=== PATIENT | male | born 1995 | race Caucasian/White ===

== ENCOUNTER 2019-03-23 17:02 | Emergency (ER) | payer BC ==
--- NOTE | 2019-03-23 17:23 | ED ---
Psychiatric Complaint - HPI Summary HPI Summary: A 23 y/o M who is afebrile presents to ED for MHE due to SI onset six days ago. He denies having SI for the past three days, but is only severely depressed. He says he is eating and sleeping well. Triage notes report recent stress from school and of his cat. Patient sees a therapist at 3 and has been doing well. Rare ETOH. Non-smoker. Marijuana use. - History Of Current Complaint Chief Complaint: EDMentalHealth Time Seen by Provider: 03/23/19 17:15 Hx Obtained From: Patient Onset/Duration: Lasting Days, Still Present Timing: Constant Severity Initially: Moderate Severity Currently: Moderate Character: Depressed Aggravating Factor(s): Recent Stress Associated Signs And Symptoms: Negative: Sleep Disturbance, Appetite Change Has Suicidal: Reports: Thoughts - Allergies/Home Medications Allergies/Adverse Reactions: Allergies Allergy/AdvReac Type Severity Reaction Status Date / Time No Known Allergies Allergy Verified 03/23/19 17:08 Home Medications: Home Medications Adderall 10 mg- 10 mg PO BID 03/23/19 [History Confirmed 03/23/19] PMH/Surg Hx/FS Hx/Imm Hx Previously Healthy: No Opthamlomology History: Denies: Hx Legally Blind EENT History: Denies: Hx Deafness Psychiatric History: Reports: Hx Community Mental Health Tx Infectious Disease History: No Infectious Disease History: Denies: Traveled Outside the [place] in Last 30 Days - Social History Occupation: Student Alcohol Use: Rare Substance Use Type: Reports: Marijuana Hx Tobacco Use: No Review of Systems Negative: Fever Psychological: Other - pos: SI Positive: Depressed All Other Systems Reviewed And Are Negative: Yes Physical Exam - Summary Physical Exam Summary: VITAL SIGNS: Reviewed. GENERAL: Patient is a well-developed and nourished MALE who is lying comfortable in the stretcher. Patient is not in any acute respiratory distress. HEAD AND FACE: No signs of trauma. No ecchymosis, hematomas or skull depressions. No sinus tenderness. EYES: PERRLA, EOMI x 2, No injected conjunctiva, no nystagmus. EARS: Hearing grossly intact. Ear canals and tympanic membranes are within normal limits. MOUTH: Oropharynx within normal limits. NECK: Supple, trachea is midline, no adenopathy, no JVD, no carotid bruit, no c- spine tenderness, neck with full ROM. CHEST: Symmetric, no tenderness at palpation LUNGS: Clear to auscultation bilaterally. No wheezing or crackles. CVS: Regular rate and rhythm, S1 and S2 present, no murmurs or gallops appreciated. ABDOMEN: Soft, non-tender. No signs of distention. No rebound, no guarding, and no masses palpated. Bowel sounds are normal. EXTREMITIES: FROM in all major joints, no edema, no cyanosis or clubbing. NEURO: Alert and oriented x 3. No acute neurological deficits. Speech is normal and follows commands. SKIN: Dry and warm PSYCH: Depressed, quiet, has suicidal thoughts. No homicidal thoughts or plan. No signs of psychosis or pressure speech. No tangential speech. Triage Information Reviewed: Yes Vital Signs On Initial Exam: Initial Vitals Temp Pulse Resp BP Pulse Ox 99.2 F 109 18 131/95 100 03/23/19 17:05 03/23/19 17:05 03/23/19 17:05 03/23/19 17:05 03/23/19 17:05 Vital Signs Reviewed: Yes Diagnostics - Vital Signs Vital Signs Temp Pulse Resp BP Pulse Ox 03/23/19 17:05 99.2 F 109 18 131/95 100 - Laboratory Result Diagrams: 03/23/19 17:39 03/23/19 17:39 Lab Statement: Any lab studies that have been ordered have been reviewed, and results considered in the medical decision making process. Course/Dx - Course Course Of Treatment: Patient is medically clear for MHE at 1730. Patient will be signed out to Dr. Way at shift change, pending MHE. - Differential Dx/Clinical Impression Differential Diagnosis/HQI/PQRI: Positive: Depression Provider Diagnosis: Depression Discharge - Sign-Out/Discharge Documenting (check all that apply): Sign-Out Patient Signing out patient TO: Vel Way - pending MHE Patient Received Moderate/Deep Sedation with Procedure: No - Discharge Plan Condition: Stable Referrals: No Primary Care Phys,NOPCP [Primary Care Provider] - - Billing Disposition and Condition Condition: STABLE - Attestation Statements Document Initiated by Scribe: Yes Documenting Scribe: Kelley Lombardi Provider For Whom Scribe is Documenting (Include Credential): Dr. Leodan Reyna MD Scribe Attestation: I, naeem Ganed for Dr. Leodan Reyna MD on 03/23/19 at 1845. Scribe Documentation Reviewed: Yes Provider Attestation: The documentation as recorded by the [email or web address], Kelley Lombardi accurately reflects the service I personally performed and the decisions made by me, Dr. Leodan Reyna MD Status of Scribe Document: Viewed
[2019-03-23 17:47] LABS: Urine Appearance Turbid; Urine Bilirubin Negative (Negative); Urine Blood Negative (Negative); Urine Color Yellow; Urine Glucose Negative (Negative); Urine Ketones Negative (Negative); Urine Nitrite Negative (Negative); Urine Protein Negative (Negative); Urine Specific Gravity 1.018 (1.010-1.030); Urine Urobilinogen Negative (Negative)
--- OUTSIDE RECORDS SUMMARY | 2019-03-23 17:51 | XMS REPORT | Continuity of Care Document ---
:1995 External Reference #:[id number] Author Name Horace Aguilera M.D. Address [address] [place] [address] Care Team Providers Name Role Phone Lucia Jacobs MD Primary Care Physician Unavailable Payers Date Identification Numbers Payment Provider Subscriber Policy Number: [id number] [employer] Number: [id number] [address] [address] PayID: [id number] [place] [address] Advance Directives Description No Information Available Problems Active Problems Provider Date Non-neoplastic nevus Gurinder Dickey MD Onset: 11/05/2004 Family History Date Family Member(s) Observation Comments Father Unknown Mother Hypertension Mother Hypercholesterolemia Social History Type Date Description Comments Sex Unknown Cigarette Use Denies Cigarette Use ETOH Use Currently consumes alcohol ETOH Use Consumes 1 glass of wine per day Tobacco Use Start: Unknown Patient has never smoked Recreational Drug Use Formerly used Marijuana sporadically Smoking Status Reviewed: 02/05/19 Patient has never smoked Allergies, Adverse Reactions, Alerts Active Allergies Reaction Severity Comments Date Biaxin Stomach Gassy 09/30/1998 Medications Active Medications SIG Qnty Indications Ordering Provider Date [place] 2 sprays each 50ml J31.0 Horace Aguilera, 02/05/2019 0.65% Solution nostil three M.D. times a day and as needed Amphetamine-Dextroamp 1/2 to 1 tab by 60tabs F90.2 Gurinder Dickey MD 05/11 hetamine mouth before 10mg Tablets studying/ work to help addh or code "b" and may repeat in 4-6 hours if needed Magnesium Oxide 1 by mouth each 60tabs Gurinder Dickey MD 02/26/2016 evening to help 400(241.3Mg) mg headaches, vision Tablets black outs, nerves and stomach History Medications Amphetamine-Dextroamphet ER 1 tab by mouth 30caps F90.2 [facility] 2017 - 20mg Caps ER every morning MD Noble 05/11/2018 24HR as needed for code "b" or attention Escitalopram Oxalate 1 tab by mouth 30tabs [facility] 01/13/2018 - 10mg Tablets every day MD Noble 04/12/2018 Amphetamine-Dextroamphet ER take 1 cap each 30caps [facility] 12/30/2017 - 15mg Caps ER 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, [employer] 01/25/2018 24HR code "b" or attention Amphetamine-Dextroamphet ER 1 cap by mouth 30caps F90.2 [facility] 2016 - 10mg Caps ER every morning MD [place]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 Immunizations CPT Code Status Date Vaccine Lot # [id number] Given 09/10/2016 Gardasil 9 Human Papillomavirus Vaccine 75505 Given 04/27/2016 Gardasil 9 Human Papillomavirus Vaccine 76593 Given 02/26/2016 Menactra-Meningococcal Conj Vaccine 24735 Given 02/26/2016 Gardasil 9 Human Papillomavirus Vaccine 29473 Given 08/01/2009 Tetanus, Diphtheria Toxoids/Acellular Pertussis Vaccine 7 Or > 51497 Given 10/30/2003 Influenza Virus Split 3 Yrs And Above For Intramuscular Use 31985 Given 04/24/2003 Poliovirus Vaccine Subcutaneous Or Intramuscular 97611 Given 04/24/2003 MMR Vaccine, Live, For Subcutaneous Use 98633 Given 04/24/2003 DTaP Vaccine Younger Than 7 (daptacel/Infarix) 31855 Given 05/01/2001 Pneumococcal Conjugate Vaccine 7 Valent For Intramuscular Use 23355 Given 10/23/1999 Influenza Virus Split Children 6-35 Mo Of Age Intramuscular Use 83369 Given 04/24/1999 Poliovirus Vaccine Oral 87076 Given 04/24/1999 DTaP Vaccine Younger Than 7 (daptacel/Infarix) 07383 Given 04/24/1999 Hib Hboc Conjugate 4 Dose Schedule 16378 Given 01/23/1999 MMR Vaccine, Live, For Subcutaneous Use 52210 Given 01/23/1999 Varicella (Chicken Pox) Vaccine 80108 Given 10/24/1998 Hepatitis B Vaccine Pediatric/Adolescent 82303 Given 09/12/1998 Influenza Virus Split Children 6-35 Mo Of Age Intramuscular Use 71659 Given 05/28/1998 DTaP Vaccine Younger Than 7 (daptacel/Infarix) 15387 Given 05/28/1998 Hib Hboc Conjugate 4 Dose Schedule 08044 Given 03/28/1998 Poliovirus Vaccine Subcutaneous Or Intramuscular 73068 Given 03/28/1998 DTaP Vaccine Younger Than 7 (daptacel/Infarix) 40036 Given 03/28/1998 Hib Hboc Conjugate 4 Dose Schedule 59262 Given 01/03/1998 Hepatitis B Vaccine Pediatric/Adolescent 10595 Given 01/03/1998 Poliovirus Vaccine Subcutaneous Or Intramuscular 72800 Given 01/03/1998 DTaP Vaccine Younger Than 7 (daptacel/Infarix) 19561 Given 01/03/1998 Hib Hboc Conjugate 4 Dose Schedule 51267 Given 1997 Hepatitis B Vaccine Pediatric/Adolescent Vital Signs Date Vital Result Comment 03/05/2019 8:33am Weight 108.00 lb Weight 48.989 kg BMI (Body Mass Index) 17.4 kg/m2 BP Systolic 108 mmHg BP Diastolic 70 mmHg Heart Rate 80 /min Height 66 inches 5'6" Height in cm's 167.6 cm 02/05/2019 10:55am Weight 106.50 lb Weight 48.308 kg BMI (Body Mass Index) 17.2 kg/m2 BP Systolic 100 mmHg BP Diastolic 70 mmHg Heart Rate 92 /min Pain Level 0 Height 66 inches 5'6" Height in cm's 167.6 cm O2 % BldC Oximetry 98 % 05/11/2018 4:36pm Weight 107.19 lb Fu Medication Weight 48.620 kg BMI (Body Mass Index) 17.6 kg/m2 BP Systolic 101 mmHg BP Diastolic 68 mmHg Heart Rate 98 /min Body Temperature 98.2 F Height 65.5 inches 5'5.50" Height in cm's 166.4 cm O2 % BldC Oximetry 98 % 04/21/2018 10:21am Weight 108.19 lb Swollen Lymph Nodes In The Back Of Neck Weight 49.074 kg BMI (Body Mass Index) 17.7 kg/m2 BP Systolic 113 mmHg BP Diastolic 72 mmHg Heart Rate 105 /min Body Temperature 98.1 F Height 65.5 inches 5'5.50" Height in cm's 166.4 cm O2 % BldC Oximetry 100 % 04/12/2018 3:19pm Weight 109.38 lb Fu Depression Weight 49.612 kg BMI (Body Mass Index) 17.9 kg/m2 BP Systolic 101 mmHg BP Diastolic 63 mmHg Heart Rate 80 /min Body Temperature 98.4 F Height 65.5 inches 5'5.50" Height in cm's 166.4 cm O2 % BldC Oximetry 98 % 02/07/2018 9:47am Weight 108.00 lb Medication F/Up Weight 48.989 kg BMI (Body Mass Index) 17.7 kg/m2 BP Systolic 108 mmHg BP Diastolic 66 mmHg Heart Rate 83 /min Body Temperature 98.2 F Height 65.5 inches 5'5.50" Height in cm's 166.4 cm O2 % BldC Oximetry 98 % 12/30/2017 3:43pm Weight 106.38 lb F/U Meds Weight 48.252 kg BMI (Body Mass Index) 17.4 kg/m2 BP Systolic 105 mmHg BP Diastolic 62 mmHg Heart Rate 79 /min Body Temperature 97.0 F Height 65.50 inches 5'5.50" Height in cm's 166.4 cm O2 % BldC Oximetry 99 % 12/05/2017 2:53pm Weight 104.56 lb Med F/Up insurance just 30d BMI (Body Mass Index) 17.1 kg/m2 BP Systolic 114 mmHg BP Diastolic 74 mmHg Heart Rate 91 /min Body Temperature 97.3 F Height 65.5 inches 5'5.50" Height in cm's 166.4 cm 11/07/2017 3:46pm Weight 107.00 lb F/U Medication Weight 48.535 kg BMI (Body Mass Index) 17.5 kg/m2 BP Systolic 117 mmHg BP Diastolic 75 mmHg Heart Rate 79 /min Body Temperature 98.5 F Height 65.50 inches 5'5.50" Height in cm's 166.4 cm O2 % BldC Oximetry 98 % 10/12/2017 3:04pm Weight 105.62 lb F/U Add Weight Percentile <3rd Weight 47.912 kg BMI (Body Mass Index) 17.3 kg/m2 Body Mass Index Percentile 3 % BP Systolic 115 mmHg BP Diastolic 74 mmHg Heart Rate 85 /min Body Temperature 97.6 F Height 65.50 inches 5'5.50" Height in cm's 166.4 cm Height Percentile 7 % O2 % BldC Oximetry 99 % 09/23/2017 3:14pm Weight 106.00 lb Weight 48.081 kg BMI (Body Mass Index) 17.4 kg/m2 BP Systolic 117 mmHg BP Diastolic 69 mmHg Heart Rate 72 /min Body Temperature 98.3 F Height 65.50 inches Height in cm's 166.4 cm Height Percentile 7 % O2 % BldC Oximetry 99 % 02/26/2016 3:52pm Weight 111.12 lb Weight 50.403 kg BMI (Body Mass Index) 18.2 kg/m2 BP Systolic 114 mmHg BP Diastolic 74 mmHg Heart Rate 64 /min Body Temperature 97.7 F Height 65.50 inches Height in cm's 166.4 cm Height Percentile 8 % O2 % BldC Oximetry 99 % 09/06/2007 9:40am Weight 48.69 lb Weight 22.085 kg Body Temperature 98.1 F 04/14/2007 4:19pm Weight 46.62 lb Weight 21.146 kg BMI (Body Mass Index) 13.7 kg/m2 BP Systolic 87 mmHg BP Diastolic 60 mmHg Heart Rate 106 /min Body Temperature 97.2 F Height 49 inches Height in cm's 124.5 cm Height Percentile 5 % O2 % BldC Oximetry 0 % 03/15/2007 2:24pm Weight 47.50 lb Weight 21.546 kg Body Temperature 98.6 F 11/05/2004 3:49pm Weight 38.50 lb Weight 17.463 kg BMI (Body Mass Index) 13.7 kg/m2 BP Systolic 92 mmHg BP Diastolic 64 mmHg Heart Rate 105 /min Body Temperature 97.8 F Height 44.50 inches Height in cm's 113.0 cm Height Percentile 5 % O2 % BldC Oximetry 99 % 10/30/2003 4:07pm Weight 34.31 lb Weight 15.563 kg BMI (Body Mass Index) 13.5 kg/m2 BP Systolic 108 mmHg BP Diastolic 80 mmHg Heart Rate 126 /min Body Temperature 98.4 F Height 42.25 inches Height in cm's 107.3 cm Height Percentile 5 % 10/01/2002 3:16pm Weight 29.12 lb Weight 13.209 kg BMI (Body Mass Index) 13.1 kg/m2 BP Systolic 100 mmHg BP Diastolic 63 mmHg Heart Rate 113 /min Body Temperature 97.8 F Height 39.50 inches Height in cm's 100.3 cm Height Percentile 5 % 05/04/2001 10:24am Weight 25.38 lb Weight 11.512 kg Body Temperature 99.6 F 05/01/2001 1:33pm Weight 27.06 lb Weight 12.274 kg BMI (Body Mass Index) 13.9 kg/m2 BP Systolic 72 mmHg BP Diastolic 40 mmHg Heart Rate 120 /min Body Temperature 98.6 F Height 37.25 inches Height in cm's 94.6 cm Height Percentile 31 % 03/23/2000 11:47am Weight 22.50 lb Weight 10.206 kg Body Temperature 98.7 F 10/23/1999 11:03am Weight 21.06 lb Weight 9.553 kg BMI (Body Mass Index) 13.6 kg/m2 Body Temperature 98.8 F Height 33 inches Height in cm's 83.8 cm Height Percentile 13 % Head Circumference 19.50 inches Head Percentile 56 % 07/22/1999 11:09am Body Temperature 98.9 F 07/21/1999 12:49pm Weight 20.31 lb Weight 9.212 kg Body Temperature 98.9 F 06/20/1999 9:36am Weight 20.12 lb Weight 9.126 kg Body Temperature 98.3 F 04/24/1999 10:07am Weight 19.88 lb Weight 9.017 kg Body Temperature 98.2 F Height 31.5 inches Height in cm's 80.0 cm Head Circumference 18.5 inches Head Percentile 16 % 03/31/1999 3:21pm Weight 19.94 lb Weight 9.045 kg Body Temperature 98.6 F 02/13/1999 12:36pm Weight 18.88 lb Weight 8.564 kg Body Temperature 97.4 F 01/23/1999 11:08am Weight 18.75 lb Weight 8.505 kg Body Temperature 98.0 F Height 29 inches Height in cm's 73.7 cm Head Circumference 18.5 inches Head Percentile 30 % 10/24/1998 1:30pm Weight 17.12 lb Weight 7.766 kg Body Temperature 98.0 F Height 27.5 inches Height in cm's 69.8 cm Head Circumference 18 inches Head Percentile 22 % 10/21/1998 8:38am Weight 17.06 lb Weight 7.738 kg Body Temperature 98.3 F Height 27.5 inches Height in cm's 69.8 cm 09/30/1998 1:27pm Weight 17.00 lb Weight 7.711 kg Body Temperature 96.8 F 09/12/1998 2:22pm Weight 17.06 lb Weight 7.738 kg Body Temperature 98.8 F 08/15/1998 1:29pm Weight 16.56 lb Weight 7.511 kg Body Temperature 98.2 F Height 25.50 inches Height in cm's 64.8 cm Head Circumference 17.75 inches Head Percentile 30 % 06/14/1998 10:56am Weight 15.44 lb Weight 7.003 kg Body Temperature 98.4 F 06/04/1998 3:19pm Weight 15.44 lb Weight 7.003 kg Body Temperature 100.6 F 05/28/1998 9:19am Weight 15.00 lb Weight 6.804 kg Body Temperature 97.9 F Height 25.5 inches Height in cm's 64.8 cm Head Circumference 17 inches 03/28/1998 10:47am Weight 14.12 lb Weight 6.405 kg Body Temperature 97.9 F Height 24 inches Height in cm's 61.0 cm Head Circumference 16.25 inches 03/20/1998 11:32am Weight 13.56 lb Weight 6.151 kg Heart Rate 133 /min Body Temperature 98.0 F O2 % BldC Oximetry 94 % 03/17/1998 10:47am Weight 13.38 lb Weight 6.069 kg Body Temperature 97.6 F 03/14/1998 9:48am Weight 13.25 lb Weight 6.010 kg Body Temperature 97.9 F 01/03/1998 12:00am Weight 11.38 lb Weight 5.162 kg Body Temperature 98.2 F 1997 12:00am Weight 9.50 lb Weight 4.309 kg Body Temperature 98.2 F 1997 12:00am Weight 7.62 lb Weight 3.456 kg Body Temperature 97.6 F Height 19.50 inches Height in cm's 49.5 cm Head Circumference 14.255 inches 1997 12:00am Weight 6.69 lb Weight 3.035 kg Body Temperature 98.4 F 1997 12:00am Weight 6.56 lb Weight 2.976 kg Body Temperature 98.4 F 1997 12:00am Weight 6.25 lb Weight 2.835 kg Body Temperature 98.8 F Results Test Date Facility Test Result H/L Range Note Culture Throat 04/21/2018 [facility] Isolate 1 Predominant Haem 1 [facility] [phone] <SEE NOTE> Culture (beta lactamase <SEE NOTE> 2 Laboratory test 02/26/2016 N2N/CCD Import Specific 1.015 g/mL 1.005 - finding [place] 1.025 pH 6.5 # 5 - 8 Laboratory test finding 04/14/2007 N2N/CCD Import Urine Leukocytes 25 1 Urine PH 5 1 Urine SG 1.020 1 Urine Uro 1 Laboratory test finding 11/05/2004 N2N/CCD Import Urine PH 6 1 Urine SG 1.020 1 Laboratory test finding 10/30/2003 N2N/CCD Import Urine Leukocytes 75 1 Urine PH 6.5 1 Urine SG 1.010 1 Laboratory test finding 10/01/2002 N2N/CCD Import Urine SG 1.020 1 pH 6 1 urinalysis 05/01/2001 N2N/CCD Import Blood 0 1 glucose urine 0 1 ketones 0 1 leukocytes 0 1 pH 5 1 protein 0 1 Laboratory test finding 10/23/1999 N2N/CCD Import Hemoglobin 11.8 1 Lymphocyte 5.7 1 MCV 84.2 1 MPV 6.3 1 Mean Corposcular Hemaglobin 28.4 1 Monocyte 0.4 1 RBC Count 4.15 1 RDW 13.8 1 granulocytes 2.0 1 hematocrit 35.0 1 lead level 2.2 1 mean corpuscular Hgb Concentr 33.7 1 platelets 417 1 white blood cell count 8.2 1 Laboratory test 08/15/1998 N2N/CCD Import Hemoglobin 11.5 gm% see age specific finding Lymphocyte 15.0 1 High MCV 80.0 1 MPV 6.8 1 Low Mean Corposcular Hemaglobin 26.2 1 Low Monocyte 0.9 1 RBC Count 4.41 1 RDW 14.2 1 granulocytes 3.0 x10^9/L age specific hematocrit 35.2 % see age specific lead level 3.0 1 mean corpuscular Hgb Concentr 32.8 1 platelets 360 x10^9/L age specific white blood cell count 19.0 1 High Laboratory test finding 1997 N2N/CCD Import 15.2 1 Hemoglobin 15.5 gm% see age specific Lymphocyte 4.7 1 MCV 106.4 1 MPV 7.2 1 Mean Corposcular Hemaglobin 34.3 1 Monocyte 1.5 1 RBC Count 4.52 1 RDW 15.7 1 granulocytes 2.3 x10^9/L age specific hematocrit 48.1 % see age specific mean corpuscular Hgb Concentr 32.3 1 platelets 410 x10^9/L age specific white blood cell count 8.5 1 1 Predominant Haemophilus influenzae 2 (beta lactamase negative) Procedures Date Code Description Status 03/05/2019 39334 Tympanometry (Impedance Testing) Completed 02/05/2019 45007 Tympanometry (Impedance Testing) Completed 10/01/2002 76054 Visual Screening Test Of Visual Acuity, Quantitative, Completed Bilateral 10/01/2002 12598 Pure Tone Audiometry (Threshold) Air Only Completed 05/01/2001 39793 Visual Screening Test Of Visual Acuity, Quantitative, Completed Bilateral 05/01/2001 69253 Pure Tone Audiometry (Threshold) Air Only Completed 10/23/1999 00809 Therapeutic,Prophylactic, Diagnostic Injection Completed 07/21/1999 42180 Unlisted Procedure, Ophthalmological Completed 10/24/1998 61332 Therapeutic,Prophylactic, Diagnostic Injection Completed 03/20/1998 32898 Pulse Oximetry Single Determination Completed Encounters Type Date Location Provider Dx Diagnosis Office Visit 03/05/2019 Disha Garcia H93.13 Tinnitus, bilateral 8:30a Services [facility] Attention- deficit 4:15p Specialists hyperactivity disorder, combined type R59.0 Localized enlarged lymph nodes Office Visit 04/21/2018 [facility]0 Localized Specialists enlarged lymph nodes F90.2 Attention-deficit hyperactivity disorder, combined type L50.0 Allergic urticaria [facility] Attention-deficit 3:15p Specialists MD [place] hyperactivity disorder, combined type G47.9 Sleep disorder, unspecified Office Visit 02/07/2018 [facility] F33.1 Major depressive Specialists disorder, recurrent, moderate R41.840 Attention and concentration deficit Office Visit 12/30/2017 [facility] F90.2 Attention-deficit 3:30p Specialists MATT Doyle hyperactivity disorder, combined type Office Visit 12/05/2017 [place] [address].2 Attention-deficit 2:45p Specialists MD [place] hyperactivity disorder, combined type Z71.3 Dietary counseling and surveillance Office Visit 11/07/2017 [place] [address].2 Attention-deficit 3:15p Specialists MD [place] hyperactivity disorder, combined type E55.9 Vitamin D deficiency, unspecified Z71.3 Dietary counseling and surveillance Office Visit 10/12/2017 [place] [address].2 Attention-deficit 3:00p Cade Dickey MD hyperactivity disorder, combined type Z71.89 Other specified counseling Office Visit 09/23/2017 3:15p [facility] [place], E55.9 Vitamin D Specialists deficiency, unspecified R41.840 Attention and concentration deficit G43.009 Migraine w/o aura, not intractable, w/o status migrainosus Plan of Treatment No Information Available
--- OUTSIDE RECORDS SUMMARY | 2019-03-23 17:51 | XMS REPORT | Continuity of Care Document ---
:1995 External Reference #:[id number] Author Name Horace Aguilera M.D. Address [address] [facility] [address] [place] [address] Care Team Providers Name Role Phone Lucia Jacobs MD Primary Care Physician Unavailable Payers Date Identification Numbers Payment Provider Subscriber Policy Number: [id number] [employer] Number: [id number] [address] [address] PayID: [id number] [place] [address] Advance Directives Description No Information Available Problems [...] Medications SIG Qnty Indications Ordering Provider Date [place] 2 sprays each 50ml J31.0 Horace Aguilera, [...] ER 1 tab by mouth 30caps F90.2 [facility] 2017 - 20mg Caps ER every morning MD Noble 05/11/2018 24HR as needed for code "b" or attention Escitalopram Oxalate 1 tab by mouth 30tabs [facility] 01/13/2018 - 10mg Tablets every day MD Noble 04/12/2018 Amphetamine-Dextroamphet ER take 1 cap each 30caps [facility] 12/30/2017 - 15mg Caps ER 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, 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 01/25/2018 24HR code "b" or attention Amphetamine-Dextroamphet ER 1 cap by mouth 30caps F90.2 [facility] 2016 - 10mg Caps ER every morning MD Noble 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 Immunizations CPT Code Status Date Vaccine Lot # 48219 Given 09/10/2016 Gardasil 9 Human Papillomavirus Vaccine 32560 Given 04/27/2016 Gardasil 9 Human Papillomavirus Vaccine 95403 Given 02/26/2016 Menactra-Meningococcal Conj Vaccine 55299 Given 02/26/2016 Gardasil 9 Human Papillomavirus Vaccine 80115 Given 08/01/2009 Tetanus, Diphtheria Toxoids/Acellular Pertussis Vaccine 7 Or > 89623 Given 10/30/2003 Influenza Virus Split 3 Yrs And Above For Intramuscular Use 80353 Given 04/24/2003 Poliovirus Vaccine Subcutaneous Or Intramuscular 99212 Given 04/24/2003 MMR Vaccine, Live, For Subcutaneous Use 80304 Given 04/24/2003 DTaP Vaccine Younger Than 7 (daptacel/Infarix) 06716 Given 05/01/2001 Pneumococcal Conjugate Vaccine 7 Valent For Intramuscular Use 37639 Given 10/23/1999 Influenza Virus Split Children 6-35 Mo Of Age Intramuscular Use 50918 Given 04/24/1999 Poliovirus Vaccine Oral 15436 Given 04/24/1999 DTaP Vaccine Younger Than 7 (daptacel/Infarix) 28159 Given 04/24/1999 Hib Hboc Conjugate 4 Dose Schedule 38063 Given 01/23/1999 MMR Vaccine, Live, For Subcutaneous Use 71251 Given 01/23/1999 Varicella (Chicken Pox) Vaccine 87837 Given 10/24/1998 Hepatitis B Vaccine Pediatric/Adolescent 45750 Given 09/12/1998 Influenza Virus Split Children 6-35 Mo Of Age Intramuscular Use 31410 Given 05/28/1998 DTaP Vaccine Younger Than 7 (daptacel/Infarix) 26135 Given 05/28/1998 Hib Hboc Conjugate 4 Dose Schedule 74886 Given 03/28/1998 Poliovirus Vaccine Subcutaneous Or Intramuscular 54611 Given 03/28/1998 DTaP Vaccine Younger Than 7 (daptacel/Infarix) 08124 Given 03/28/1998 Hib Hboc Conjugate 4 Dose Schedule 66370 Given 01/03/1998 Hepatitis B Vaccine Pediatric/Adolescent 30915 Given 01/03/1998 Poliovirus Vaccine Subcutaneous Or Intramuscular 02332 Given 01/03/1998 DTaP Vaccine Younger Than 7 (daptacel/Infarix) 08253 Given 01/03/1998 Hib Hboc Conjugate 4 Dose Schedule 70810 Given 1997 Hepatitis B Vaccine Pediatric/Adolescent Vital Signs Date Vital Result Comment 03/05/2019 8:33am Weight 108.00 lb Weight 48.989 kg BMI (Body Mass Index) 17.4 kg/m2 Height 66 inches 5'6" Height in cm's [...] Lab Isolate 1 Predominant Haem 1 Comprehensive [phone] <SEE NOTE> Culture (beta lactamase <SEE NOTE> 2 Laboratory test 02/26/2016 N2N/CCD Import Specific 1.015 g/mL 1.005 - finding [place] 1.025 pH 6.5 # 5 - 8 [...] lactamase negative) Procedures Date Code Description Status 02/05/2019 44609 Tympanometry (Impedance Testing) Completed 10/01/2002 88947 Visual Screening Test Of Visual Acuity, Quantitative, Completed Bilateral 10/01/2002 22140 Pure Tone Audiometry (Threshold) Air Only Completed 05/01/2001 66552 Visual Screening Test Of Visual Acuity, Quantitative, Completed Bilateral 05/01/2001 73161 Pure Tone Audiometry (Threshold) Air Only Completed 10/23/1999 87903 Therapeutic,Prophylactic, Diagnostic Injection Completed 07/21/1999 94545 Unlisted Procedure, Ophthalmological Completed 10/24/1998 80615 Therapeutic,Prophylactic, Diagnostic Injection Completed 03/20/1998 30452 Pulse Oximetry Single Determination Completed Encounters Type Date Location Provider Dx Diagnosis [facility] F90.2 Attention- deficit 4:15p Specialists hyperactivity disorder, combined type R59.0 Localized enlarged lymph nodes Office Visit 04/21/2018 10:15a [facility] Noble, R59.0 Localized Specialists enlarged lymph nodes F90.2 Attention-deficit hyperactivity disorder, combined type L50.0 Allergic urticaria Office Visit 04/12/2018 [facility]90.2 Attention-deficit 3:15p Specialists MD Noble hyperactivity disorder, combined type G47.9 Sleep disorder, unspecified Office Visit 02/07/2018 9:15a [facility] Noble, F33.1 Major depressive Specialists disorder, recurrent, moderate R41.840 Attention and concentration deficit Office Visit 12/30/2017 [facility] F90.2 Attention-deficit 3:30p Specialists MATT Doyle hyperactivity disorder, combined type Office Visit 12/05/2017 [facility]90.2 Attention-deficit 2:45p Specialists MD Noble hyperactivity disorder, combined type Z71.3 Dietary counseling and surveillance Office Visit 11/07/2017 [facility] F90.2 Attention-deficit 3:15p Specialists MD Noble hyperactivity disorder, combined type E55.9 Vitamin D deficiency, unspecified Z71.3 Dietary counseling and surveillance [facility] Attention-deficit 3:00p Cade Dickey MD hyperactivity disorder, combined type Z71.89 Other specified counseling Office Visit 09[facility]23[facility]2017 [facility] [place], E55.9 Vitamin D Specialists deficiency, unspecified R41.840 Attention and concentration deficit G43.009 Migraine w/o aura, not intractable, w/o status migrainosus Plan of Treatment 02/05/2019 - Horace Aguilera M.D.H93.13 Tinnitus, bilateralNew Orders: Comprehensive Audiology Evaluation, Ordered: 02/05/19Follow up:Follow-up after gyavlgibgX16.0 Chronic rhinitisNew Medication:B[place]vue 0.65 % - 2 sprays each nostil three times a day and as needed
--- OUTSIDE RECORDS SUMMARY | 2019-03-23 17:51 | XMS REPORT | Continuity of Care Document ---
:1995 External Reference #:[id number] Author Name Horace Aguilera M.D. Address [address] [facility] [address] [place] [address] Care Team Providers Name Role Phone Lucia Jacobs MD Primary Care Physician Unavailable Payers Date Identification Numbers Payment Provider Subscriber Policy Number: [id number] [employer] Number: [id number] [address] [address] PayID: [id number] [place] [address] Advance Directives Description No Information Available Problems [...] Medications SIG Qnty Indications Ordering Provider Date [place] 2 sprays each 50ml J31.0 Horace Aguilera, [...] ER 1 tab by mouth 30caps F90.2 [facility] 2017 - 20mg Caps ER every morning MD Noble 05/11/2018 24HR as needed for code "b" or attention Escitalopram Oxalate 1 tab by mouth 30tabs [facility] 01/13/2018 - 10mg Tablets every day MD Noble 04/12/2018 Amphetamine-Dextroamphet ER take 1 cap each 30caps [facility] 12/30/2017 - 15mg Caps ER 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, 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 01/25/2018 24HR code "b" or attention Amphetamine-Dextroamphet ER 1 cap by mouth 30caps F90.2 [facility] 2016 - 10mg Caps ER every morning MD 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 Immunizations CPT Code Status Date Vaccine Lot # [id number] Given 09/10/2016 Gardasil 9 Human Papillomavirus Vaccine 56811 Given 04/27/2016 Gardasil 9 Human Papillomavirus Vaccine 57551 Given 02/26/2016 Menactra-Meningococcal Conj Vaccine 68707 Given 02/26/2016 Gardasil 9 Human Papillomavirus Vaccine 66069 Given 08/01/2009 Tetanus, Diphtheria Toxoids/Acellular Pertussis Vaccine 7 Or > 00402 Given 10/30/2003 Influenza Virus Split 3 Yrs And Above For Intramuscular Use 23362 Given 04/24/2003 Poliovirus Vaccine Subcutaneous Or Intramuscular 66523 Given 04/24/2003 MMR Vaccine, Live, For Subcutaneous Use 69051 Given 04/24/2003 DTaP Vaccine Younger Than 7 (daptacel/Infarix) 74543 Given 05/01/2001 Pneumococcal Conjugate Vaccine 7 Valent For Intramuscular Use 63131 Given 10/23/1999 Influenza Virus Split Children 6-35 Mo Of Age Intramuscular Use 59965 Given 04/24/1999 Poliovirus Vaccine Oral 45659 Given 04/24/1999 DTaP Vaccine Younger Than 7 (daptacel/Infarix) 01409 Given 04/24/1999 Hib Hboc Conjugate 4 Dose Schedule 07056 Given 01/23/1999 MMR Vaccine, Live, For Subcutaneous Use 50607 Given 01/23/1999 Varicella (Chicken Pox) Vaccine 91068 Given 10/24/1998 Hepatitis B Vaccine Pediatric/Adolescent 73514 Given 09/12/1998 Influenza Virus Split Children 6-35 Mo Of Age Intramuscular Use 70153 Given 05/28/1998 DTaP Vaccine Younger Than 7 (daptacel/Infarix) 05007 Given 05/28/1998 Hib Hboc Conjugate 4 Dose Schedule 08222 Given 03/28/1998 Poliovirus Vaccine Subcutaneous Or Intramuscular 61854 Given 03/28/1998 DTaP Vaccine Younger Than 7 (daptacel/Infarix) 42864 Given 03/28/1998 Hib Hboc Conjugate 4 Dose Schedule 12169 Given 01/03/1998 Hepatitis B Vaccine Pediatric/Adolescent 81283 Given 01/03/1998 Poliovirus Vaccine Subcutaneous Or Intramuscular 31479 Given 01/03/1998 DTaP Vaccine Younger Than 7 (daptacel/Infarix) 90716 Given 01/03/1998 Hib Hboc Conjugate 4 Dose Schedule 87254 Given 1997 Hepatitis B Vaccine Pediatric/Adolescent Vital [...] Lab Isolate 1 Predominant Haem 1 Comprehensive [phone] <SEE NOTE> Culture (beta lactamase <SEE NOTE> 2 Laboratory test 02/26/2016 N2N/CCD Import Specific 1.015 g/mL 1.005 - finding [place] 1.025 pH 6.5 # 5 - 8 [...] negative) Procedures Date Code Description Status 03/05/2019 95788 Tympanometry (Impedance Testing) Completed 02/05/2019 91179 Tympanometry (Impedance Testing) Completed 10/01/2002 56241 Visual Screening Test Of Visual Acuity, Quantitative, Completed Bilateral 10/01/2002 09503 Pure Tone Audiometry (Threshold) Air Only Completed 05/01/2001 22158 Visual Screening Test Of Visual Acuity, Quantitative, Completed Bilateral 05/01/2001 98879 Pure Tone Audiometry (Threshold) Air Only Completed 10/23/1999 85926 Therapeutic,Prophylactic, Diagnostic Injection Completed 07/21/1999 01738 Unlisted Procedure, Ophthalmological Completed 10/24/1998 93616 Therapeutic,Prophylactic, Diagnostic Injection Completed 03/20/1998 08295 Pulse Oximetry Single Determination Completed Encounters Type Date Location Provider Dx Diagnosis Office Visit 03/05/2019 Disha Garcia H93.13 Tinnitus, bilateral 8:30a Services Alix Aguilera Office Visit 05/11/2018 [facility] Gurinder Dickey F90.2 Attention- deficit 4:15p Specialists hyperactivity disorder, combined type R59.0 Localized enlarged lymph nodes Office Visit 04/21/2018 10:15a [facility] Gurinder Dickey R59.0 Localized Specialists enlarged lymph nodes F90.2 Attention-deficit hyperactivity disorder, combined type L50.0 Allergic urticaria [facility] Attention-deficit 3:15p Specialists MD Noble hyperactivity disorder, combined type G47.9 Sleep disorder, unspecified Office Visit 02/07/2018 9:15a [facility] Gurinder Dickey F33.1 Major depressive Specialists disorder, recurrent, moderate R41.840 Attention and concentration deficit Office Visit 12/30/2017 [facility] Aretha F90.2 Attention-deficit 3:30p Specialists MATT Doyle hyperactivity disorder, combined type Office Visit 12/05/2017 [facility]90.2 Attention-deficit 2:45p Cade Dickey MD hyperactivity disorder, combined type Z71.3 Dietary counseling and surveillance Office Visit 11/07/2017 [place] [address]67.2 Attention-deficit 3:15p Cade Dickey MD hyperactivity disorder, combined type E55.9 Vitamin D deficiency, unspecified Z71.3 Dietary counseling and surveillance Office Visit 10/12/2017 [place] [address]67.2 Attention-deficit 3:00p Cade Dickey MD hyperactivity disorder, combined type Z71.89 Other specified counseling Office Visit 09/23/2017 3:15p [facility] Noble, E55.9 Vitamin D Specialists deficiency, unspecified R41.840 Attention and concentration deficit G43.009 Migraine w/o aura, not intractable, w/o status migrainosus Plan of Treatment No Information Available
[2019-03-23 17:53] LABS: ABS Eosinophils 0.1 10^3/ul (0-0.6); ABS Monocytes 0.7 10^3/ul (0-0.8); Eosinophil % 1.3 %; Hematocrit 43 % (42-52); Lymphocyte % 33.7 %; Mean Corpuscular HGB Conc 35 g/dL (31-36); Mean Corpuscular Hemoglobin 30 pg (27-31); Mean Corpuscular Volume 87 fL (80-94); Mean Platelet Volume 7.7 fL (7.4-10.4); Nucleated Red Blood Cells % 0.1; Platelet Count 348 10^3/uL (150-450); Red Blood Count 5.01 10^6 /uL (4.18-5.48); Red Cell Distribution Width 13 % (10.5-15); White Blood Count 8.8 10^3/uL (3.5-10.8)
[2019-03-23 18:09] LABS: ALT 14 U/L (7-52); AST 17 U/L (13-39); Albumin/Globulin Ratio 1.7 (1-3); Alkaline Phosphatase 66 U/L (34-104); Anion Gap 7 mmol/L (2-11); BUN/Creatinine Ratio 15.2 (8-20); Blood Urea Nitrogen 15 mg/dL (6-24); CO2 Carbon Dioxide 27 mmol/L (22-32); Calcium 9.8 mg/dL (8.6-10.3); Chloride 107 mmol/L (101-111); EGFR African American 115.5 (>60); EGFR Non-African American 95.4 (>60); Glucose 98 mg/dL (70-100); Potassium 3.9 mmol/L (3.5-5.0); Sodium 141 mmol/L (135-145)
[2019-03-23 18:11] LABS: Urine Benzodiazepine Screen None Detected (None Detect); Urine Opiates Screen None Detected (None Detect)
[2019-03-23 18:17] LABS: Alcohol < 10 mg/dL (<10); Salicylate < 2.50 mg/dL (<30)
[2019-03-23 18:31] LABS: TSH (Thyroid Stimulating Horm) 0.87 mcIU/mL (0.34-5.60)
[2019-03-23 18:38] LABS: Acetaminophen < 15 mcg/mL
--- NOTE | 2019-03-23 19:08 | ED ---
Progress - Progress Note Progress Note: Patient was signed out from Dr. Reyna at end of shift, pending MHE. At 2112, per Dr. Hinds, patient is cleared for discharge, with a dx of anxiety and depression. Patient is agreeable with this plan. Course/Dx - Course Course Of Treatment: Patient is medically clear for MHE at 1730. Patient was signed out from Dr. Reyna at end of shift, pending MHE. At 2112, per Dr. Hinds , patient is cleared for discharge, with a dx of anxiety and depression. Patient is agreeable with this plan. - Diagnoses Provider Diagnoses: Depression, Anxiety - Provider Notifications Discussed Care Of Patient With: Kd Hinds - Psychiatrist Time Discussed With Above Provider: 21:13 Discharge - Sign-Out/Discharge Documenting (check all that apply): Patient Departure, Receiving Sign-Out Receiving patient FROM: Leodan Reyna Patient Received Moderate/Deep Sedation with Procedure: No - Discharge Plan Condition: Stable Disposition: HOME Patient Education Materials: Depression (ED) Referrals: No Primary Care Phys,NOPCP [Primary Care Provider] - Additional Instructions: Per completion of a mental health evaluation, you are cleared for release and do not require inpatient psychiatric hospitalization at this time. Please go to nearest emergency room or call 911 if safety concerns arise or condition worsens. Important Phone Numbers: [facility] ph:[phone] Su[facility] Prevention [facility] Crisis Services ph:[phone] National Suicide Prevention Lifeline ph:[phone]- [phone] (5956) [facility] ph:[phone] Alcoholics Anonymous ph: [facility] ph:[phone] [facility] Police ph:[phone] Follow up with [facility] on Tuesday to schedule an intake and commence assessment. . - Billing Disposition and Condition Condition: STABLE Disposition: Home - Attestation Statements Document Initiated by Scribe: Yes Documenting Scribe: Edwin Chirinos Provider For Whom Scribe is Documenting (Include Credential): Vel Way MD Scribe Attestation: Edwin Alfredo, scribed for Vel Way MD on 03/24/19 at 0607. Scribe Documentation Reviewed: Yes Provider Attestation: The documentation as recorded by the scribe, Edwin Chirinos accurately reflects the service I personally performed and the decisions made by me, Vel Way MD Status of Toña Document: Viewed
[2019-03-23 21:36] VITALS: BP 114/87
== END 2019-03-23 21:35 | disposition home or self-care (01) ==
LOC: ED 17:02
DX: F32.9 Major depressive disorder, single episode, unspecified (principal); F12.90 Cannabis use, unspecified, uncomplicated
CPT/HCPCS: 36415; 80053; 80307; 80320; 80329; 81003; 84443; 85025; 99284; G0480